=== PATIENT | male | born 1960 | race Caucasian/White ===

== ENCOUNTER 2018-07-02 13:02 | Observation (INO) ==
[2018-07-02] MEDS ORDERED: ASPIRIN PO ONE (13:47)
[2018-07-02] MEDS ORDERED: NITROGLYCERIN SL PRN (13:47)
--- NOTE | 2018-07-02 14:02 | EKG Report ---
Test Performed on : 07/02/2018 1:10:30 PM Test Reason : CP Blood Pressure : / mmHG Vent. Rate : 075 BPM Atrial Rate : 075 BPM P-R Int : 124 ms QRS Dur : 092 ms QT Int : 364 ms P-R-T Axes : 061 079 072 degrees QTc Int : 406 ms Normal sinus rhythm. Normal ECG No previous ECGs available Unconfirmed Result
[2018-07-02 14:14] LABS: BASO# 0.04 X1000 (0.0-0.2); BASO% 0.7 % (0.0-0.8); EOS% 1.8 % (0.0-10.0); HEMATOCRIT 40.7 % (42.0-52.0); HEMOGLOBIN 13.4 g/dL (14.0-18.0); LYMPH% 31.4 % (20.5-51.1); MCH 27.9 PG (27-31); MCHC 32.9 g/dL (33-37); MCV 84.6 FL (81-99); MONO# 0.45 X1000 (0.11-0.59); MONO% 8.3 % (1.7-9.3); NEUT# 3.12 X1000 (1.4-6.5); NEUT% 57.8 % (42.2-75.2); PLT 252 X1000 (130-400); RBC 4.81 XMIL (4.7-6.1); RDW 13.5 % (11.5-14.5); WBC 5.41 X1000 (4.8-10.8)
[2018-07-02 14:17] LABS: INR 0.99; PROTIME 13.9 Seconds (11.0-16.0)
[2018-07-02 14:18] LABS: PTT 31.8 Seconds (22.3-41.8)
[2018-07-02 14:20] LABS: AGAP 11; ALB/GLOB RATIO 1.6; ALBUMIN 4.3 g/dL (3.5-5.0); ALKALINE PHOSPHATASE 80 U/L (32-122); BUN 9 mg/dL (8-22); CALCIUM 10.1 mg/dL (8.8-10.2); CHLORIDE 103 mmol/L (98-107); COSMO 279; CREATININE 0.8 mg/dL (0.7-1.2); ESTIMATED GFR > 60; GLUCOSE 122 mg/dL (70-104); GOT 19 U/L (10-34); GPT 19 U/L (10-44); POTASSIUM 4.2 mmol/L (3.5-5.1); SODIUM 140 mmol/L (136-145); TCO2 26 mmol/L (25-35)
--- NOTE | 2018-07-02 14:24 | Diag Imaging Result Doc PS360 ---
EXAM: CHEST-2 VIEWS 07/02/2018 HISTORY: cp TECHNIQUE: PA and lateral chest COMMENT: There is no evidence of acute cardiac or pulmonary disease. There are no previous studies available for comparison. IMPRESSION: No acute disease. Electronically signed by Emmanuel Dolan 07/02/2018 2:22 PM
[2018-07-02 14:25] LABS: CK PROFILE 251 U/L (24-204)
[2018-07-02 14:40] LABS: CK INDEX 1.4 (0.0-2.5)
--- NOTE | 2018-07-02 16:57 | Diag Imaging Result Doc PS360 ---
EXAM: CT ABD/PELVIS W/PO AND IV CON 07/02/2018 HISTORY: gallbladder disease TECHNIQUE: This exam was performed using automated exposure control, adjustment of mA or kV according to patient size, and/or use of iterative reconstruction technique. COMMENT: There are no previous studies available for comparison. The visualized portion of the chest is unremarkable. There are multiple cysts in the liver including a large multilobated cyst in the left hepatic lobe measuring in excess of 6.2 cm in transverse dimension. There are no gallstones. The aorta is not distended and the mesenteric and renal arteries are patent bilaterally. There are two renal arteries on both sides. There is no evidence of hydronephrosis or nephrolithiasis. The spleen adrenal glands and pancreas are within normal limits. There are no renal masses. There is stool throughout the colon. There is no evidence of bowel obstruction. Pelvis: The appendix is normal in appearance. There is some diverticulosis in the sigmoid colon without evidence of diverticulitis. The urinary bladder is not distended. There is no evidence of free fluid. The regional skeleton appears to be intact. IMPRESSION: Congenital hepatic cysts. No evidence of cholelithiasis or cholecystitis. Mild constipation. Electronically signed by Emmanuel Dolan 07/02/2018 4:55 PM
--- NOTE | 2018-07-02 17:31 | PROVIDER DOCUMENTATION ---
This chart was entered by Patsy Watson Scribe, acting as scribe for Miladys Linares MD. HPI-Chest Pain - General Chief Complaint: Chest Pain Stated Complaint: CHEST PAIN Time Seen by Provider: 07/02/18 13:22 Source: patient - History of Present Illness-CP Nature of Presenting Problem: 58 y/o male presents to ED with intermittent, sharp/stabbing R sided chest pain radiating to back and shoulder and numbness/swelling of R arm onset 1 hour prior to arrival. EMS reports he had aspirin en roite to ED, which improved his symptoms. Pt states he no longer has the pain. Pt reports he has family hx [place] and cardiac arrest. Pt denies any URI symptoms. Pt is alert and oriented. Location: reports: other (R sided) Chest Pain Radiation: reports: shoulders, back Quality of Pain: reports: sharp, stabbing Severity in ED: moderate Onset/Duration: 1 hour ago Timing: gone now Context/Activities at Onset: reports: light activity Modifying Factors: improves with: other medication (aspirin) Associated Symptoms: reports: back pain Nitro Today/Relief: 0.4 mg x 3, provided by ED Aspirin Treatment Today: 325 mg x 1, provided by EMS, provided by ED Prior Chest Pain/Cardiac Workup: reports: no prior chest pain, no prior cardiac workup Similar Symptoms Previously?: No Recently Seen Here or By Another Healthcare Provider: No Review of Systems - Adult - REVIEW OF SYSTEMS - ADULT Constitutional: denies: chills, fever Eyes: reports: no symptoms reported Ears, Nose, Mouth & Throat: reports: no symptoms reported Cardiovascular: reports: chest pain. denies: palpitations Respiratory: denies: cough, shortness of breath Gastrointestinal: denies: abdominal pain, diarrhea, nausea, vomiting Genitourinary: reports: no symptoms reported Musculoskeletal: reports: back pain, joint pain (shoulder), other (R arm swelling) Integumentary: reports: no symptoms reported Neurological: denies: dizziness/vertigo, seizure Psychiatric: reports: no symptoms reported Endocrine: reports: no symptoms reported Hematologic/Lymphatic: reports: no symptoms reported Allergic/Immunologic: reports: no symptoms reported All Other Systems: Reviewed and Negative Past History - Adult - PAST MEDICAL HISTORY-ADULT Review of Records: reports: Old Records Reviewed, Nursing Assessment Review, Medications Reviewed Major Childhood Illnesses: reports: denies history Cardiovascular: reports: HTN, hyperlipidemia - PRIOR SURGERIES/PROCEDURES Surgical/Procedure History: reports: back/neck - IMMUNIZATION STATUS Childhood Immunizations: See Nurse Assessment Flu Vaccine: See Nurse Assessment - FAMILY HISTORY Family History: sudden , other ([place]/cardiac arrest) - SOCIAL HISTORY Smoking: less than 1 pack/day Provider spent 3-5 mins advising pt. on dangers of tobacco.: Discussed manners to quit use, and f/u contacts for add'l counseling. Substance Use: none/never Alcohol Use Frequency: 3-4 times a week Living Situation: family Physical Exam-General - PHYSICAL EXAM-ADULT Initial Vital Signs Reviewed: Yes - CONSTITUTIONAL General Appearance: appears well, alert, no apparent distress - EYES Eyes: PERRL/EOMI, pink conjunctivae - HEAD, EARS, NOSE, MOUTH & THROAT HENMT: normocephalic/atraumatic, moist mucous membranes, normal ENT inspection - NECK Neck: non-tender, full range of motion - RESPIRATORY Respiratory: chest non-tender, lungs clear, normal breath sounds - CARDIOVASCULAR Cardiovascular: normal peripheral pulses, regular rate, rhythm - GASTROINTESTINAL (ABDOMEN) Abdominal Exam: normal bowel sounds, non tender, soft - MUSCULOSKELETAL Back Exam: normal inspection, no CVA tenderness Extremity: normal range of motion, non-tender, normal gait - SKIN Integumentary: normal color, warm/dry - NEUROLOGIC Neurologic: grossly normal - PSYCHIATRIC Psych/Mental Status: normal mood/affect, normal thought content, normal thought process - HEART Score HEART Score: History: Slightly Suspicious HEART Score: Age: 45-65 Years HEART Score: Risk Factors for Atherosclerotic Disease: > or = 3 Risk Factors or History of Atherosclerotic Disease HEART Score: Troponin: < or = Normal Limit Progress - PLAN OF CARE/RESULTS Progress/Plan/Lab Results: Vital Signs - 8 hr 07/02/18 13:28 Temperature 98.6 F Pulse Rate 76 Respiratory Rate 15 Blood Pressure 111/72 O2 Sat by Pulse Oximetry 98 Laboratory Results - last 24 hr 07/02/18 07/02/18 07/02/18 13:12 13:12 13:12 WBC 5.41 RBC 4.81 Hgb 13.4 L Hct 40.7 L MCV 84.6 MCH 27.9 MCHC 32.9 L RDW Std Deviation 13.5 Plt Count 252 MPV 11.0 H Immature Gran % (Auto) 0.0 Neut % (Auto) 57.8 Lymph % (Auto) 31.4 Sherman % (Auto) 8.3 Eos % (Auto) 1.8 Baso % (Auto) 0.7 Immature Gran # (Auto) 0.00 Neut # (Auto) 3.12 Lymph # (Auto) 1.70 Sherman # (Auto) 0.45 Eos # (Auto) 0.10 Baso # (Auto) 0.04 PT INR PTT (Actin FS) Sodium 140 Potassium 4.2 Chloride 103 Carbon Dioxide 26 Anion Gap 11 BUN 9 Creatinine 0.8 Estimated GFR/1.73 m2 > 60 BUN/Creatinine Ratio 11 Glucose 122 H Calculated Osmolality 279 Calcium 10.1 Total Bilirubin 0.20 AST 19 ALT 19 Alkaline Phosphatase 80 Creatine Kinase 251 H Creatine Kinase Index 1.4 CK-MB (CK-2) 3.50 Troponin T Kid-V-Hsngbrzppty Pept 23 Total Protein 7.0 Albumin 4.3 Globulin 2.7 Albumin/Globulin Ratio 1.6 07/02/18 07/02/18 07/02/18 13:12 13:12 17:00 WBC RBC Hgb Hct MCV MCH MCHC RDW Std Deviation Plt Count MPV Immature Gran % (Auto) Neut % (Auto) Lymph % (Auto) Sherman % (Auto) Eos % (Auto) Baso % (Auto) Immature Gran # (Auto) Neut # (Auto) Lymph # (Auto) Sherman # (Auto) Eos # (Auto) Baso # (Auto) PT 13.9 INR 0.99 PTT (Actin FS) 31.8 Sodium Potassium Chloride Carbon Dioxide Anion Gap BUN Creatinine Estimated GFR/1.73 m2 BUN/Creatinine Ratio Glucose Calculated Osmolality Calcium Total Bilirubin AST ALT Alkaline Phosphatase Creatine Kinase Creatine Kinase Index CK-MB (CK-2) Troponin T < 0.010 < 0.010 Hsm-D-Mhhkcvslvaw Pept Total Protein Albumin Globulin Albumin/Globulin Ratio Orders Category Date Time Status Cardiac Monitoring DIRECTED Care 07/02/18 13:48 Active Oxygen Therapy- ED Nursing DIRECTED Care 07/02/18 13:48 Active Saline Loc NOW Care 07/02/18 13:48 Active Abdomen [CT ABD/PELVIS W/PO AND IV CON] [CT] Stat Exams 07/02/18 13:49 Completed CHEST-2 VIEWS [RAD] Stat Exams 07/02/18 13:48 Completed CBC WITH ELECTRONIC DIFF [HEME] Stat Lab 07/02/18 13:12 Completed CK PROFILE [SP CHEM] Stat Lab 07/02/18 13:12 Completed CK PROFILE [SP CHEM] Stat Lab 07/02/18 17:00 Received COMPREHENSIVE METABOLIC PANEL [CHEM] Stat Lab 07/02/18 13:12 Completed PRO B-NATRIURETIC PEPTIDE Stat Lab 07/02/18 13:12 Completed PROTIME WITH INR [COAG] Stat Lab 07/02/18 13:12 Completed PTT [COAG] Stat Lab 07/02/18 13:12 Completed TROPONIN T Stat Lab 07/02/18 13:12 Completed TROPONIN T Stat Lab 07/02/18 17:00 Completed Aspirin Med 07/02/18 13:47 Discontinued 325 mg PO NOW ONE Nitroglycerin Sl [Nitroglycerin] Med 07/02/18 13:47 Active 0.4 mg SL Q5M PRN PRN CP/SOB/Palp >45 yrs of Age Stat Oth 07/02/18 13:47 Ordered EKG [EKG] Stat Ther 07/02/18 13:48 Draft EKG [EKG] Stat Ther 07/02/18 16:28 Ordered Result Diagrams: 07/02/18 13:12 07/02/18 13:12 - XRAY 1 XRAY Study: Chest Impression: Normal (COMMENT: There is no evidence of acute cardiac or pulmonary disease. There are no previous studies available for comparison. IMPRESSION: No acute disease. Electronically signed by Emmanuel Dolan 07/02/2018 2:22 PM) - CT/MRI 1 CT Study: Abdomen, Pelvis Impression: Abnormal (COMMENT: There are no previous studies available for comparison. The visualized portion of the chest is unremarkable. There are multiple cysts in the liver including a large multilobated cyst in the left hepatic lobe measuring in excess of 6.2 cm in transverse dimension. There are no gallstones. The aorta is not distended and the mesenteric and renal arteries are patent bilaterally. There are two renal arteries on both sides. There is no evidence of hydronephrosis or nephrolithiasis. The spleen adrenal glands and pancreas are within normal limits. There are no renal masses. There is stool throughout the colon. There is no evidence of bowel obstruction. Pelvis: The appendix is normal in appearance. There is some diverticulosis in the sigmoid colon without evidence of diverticulitis. The urinary bladder is not distended. There is no evidence of free fluid. The regional skeleton appears to be intact. IMPRESSION: Congenital hepatic cysts. No evidence of cholelithiasis or cholecystitis. Mild constipation. Electronically signed by Emmanuel Dolan 07/02/2018 4:55 PM) - CONSULTS/PCP/HOSPITALIST Notification #1 *Consult/PCP/Hospitalist*: MÓNICA Turner for Dr. Hicks Time Discussed: 17:23 Reason/Comments: Chest pain; family hx of sudden , [place], cardiac arrest Consult Disposition: Admit Departure - Departure Date of Disposition Decision: 07/02/18 Time of Disposition Decision: 17:23 DIAGNOSIS: ACS (acute coronary syndrome) Disposition: ADMITTED INPATIENT 09 Certified Medical Emergency: Emergent Condition: Stable Referrals and Follow-Ups: Barrington Palacios [Primary Care Provider] - Discharge Education: Steps to Quit Smoking, [id number] - Critical Care Note This patient required my direct & personal management of CC.: No Attestation - Physician/ ELIZABETH Attestation Patient care was provided by Advanced Practice Provider:: No The physician spent face to face time with patient:: Yes Advanced Practice Provider documentation review:: Supervising physician onsite and consulted in the evaluation and care of this patient. The physician did have a face to face encounter with the patient. This chart was documented by the indicated scribe, (Patsy Watson Scribe) and accurately reflects the services I performed and decisions made by me, Miladys Linares MD, as attested by the provider's signature.
[2018-07-02 18:27] LABS: CK INDEX 1.4 (0.0-2.5); CK-MB 2.92 ng/mL (0.0-5.0)
--- NOTE | 2018-07-02 19:57 | HISTORY AND PHYSICAL ---
PRIMARY CARE PROVIDER: Dr. Philip Ferris in the [facility] system in [place]. PRESENTING COMPLAINT: Chest pain. HISTORY OF PRESENTING COMPLAINT: Mr. Flores is a 58-year-old male with a history of hypertension and dyslipidemia, also tobacco abuse. He has been pretty active and follows up very religiously with his primary care doctor. Has been in his regular state of health until early this morning. He was working when he had this retrosternal chest pain of acute onset, went to about 8/10 which was associated with some numbness, especially on the right arm. He also said the pain went into his back and to both shoulders. He denied any nauseation or any dizziness. He what to sit down and the pain gradually subsided. He said the pain lasted for about 5 minutes, but then a couple minutes after he had another episode of similar description retrosternal, extremely high intensity radiating to the back and making the right upper extremity slightly numb. In any case, he said the EMS station is just pretty close to where he works so they were in within no time he was given nitroglycerin and aspirin and that seems to have brought down the pain to about 4, about 3-4. By the time he came to the emergency room he was pain free. PAST MEDICAL HISTORY: 1. Hypertension. 2. Dyslipidemia. 3. GERD. PAST SURGICAL HISTORY: Lower back laminectomy. FAMILY HISTORY: 1. Positive for mother with cardiomyopathy. 2. Father has hypertension. 3. Uncles 2 of acute myocardial infarction from the father's side and her maternal grandfather also of acute myocardial infarction. SOCIAL HISTORY: Mr. Flores is , has kids. He denies alcohol use, but he has a 20 pack year history of smoking. He denies any street drug use. HOME MEDICATIONS: Include: 1. Lisinopril 2.5 mg daily. 2. Pravastatin 40 mg daily. 3. Nexium 40 mg every now and then for GERD. REVIEW OF SYSTEMS: A 14-point review of system conducted with Mr. Flores is unremarkable except what we have in the HPI. Specifically, Mr. Gaston denies any shortness of breath or cough. No fever, no vomiting, no diarrhea, no abdominal pain. OBJECTIVE: Vital Signs: Blood pressure is 111/72, pulse is 75, respiration is 15, temperature 98.6. Mr. Flores is saturating 98% on room air. General: Mr. Flores is a 58-year-old male. He was in bed. He did not seem to be in any cardiopulmonary distress. HEENT: Mucosa is pink and moist. Anicteric. Acyanotic. Neck: Supple. There was no JVD. Trachea is midline. There is no thyromegaly. Head is normocephalic and atraumatic. Respiratory: There is good air entry bilaterally. No crepitations. No rhonchi. No accessory muscle use. Cardiovascular: Regular rate and rhythm. No murmurs, no rubs, no gallops. Gastrointestinal: Abdomen is soft, is nontender. Bowel sounds are present. No hepatosplenomegaly and no scar tissue on the abdominal wall. Genitourinary: Unremarkable. Extremities: No pedal edema. Distal pulses are present. Central Nervous System: Patient is awake, alert, oriented. His cortical functions are normal. The patient has 5/5 power in all extremities. Sensation is intact except for the right lateral aspect of the lower extremity that has reduced sensation. According to the patient this is chronic. I did not explore gait. Psychiatric: The patient is very cooperative. Has good understanding and judgment. LABORATORY DATA: WBC is 5.41, hemoglobin is 12.4, platelet count of 252,000. Coagulation study is normal. Chemistry is completely normal. Troponin has been done 2 times and it is unremarkable. DIAGNOSTIC STUDIES: 1. A chest x-ray showed no acute disease. 2. A CT scan of the abdomen and pelvis which was done in the ER showed congenital hepatic cyst. No evidence of cholelithiasis or cholecystitis. There was mild constipation. 3. EKG shows normal sinus rhythm, normal axis, no ST-segment abnormality or T- wave abnormality. ASSESSMENT: Mr. Flores who is hypertensive and has dyslipidemia with history of tobacco use presented with an acute onset of retrosternal chest pain which is concerning for unstable angina. 1. Acute onset of chest pain concerning for unstable angina. The patient is going to be admitted to the medical floor under telemonitoring. He currently will be on aspirin and statin and we will do a cardiac workup to rule out any significant coronary artery disease. We will do an echocardiogram, a stress test tomorrow. We will also get Cardiology to see Mr. Flores. 2. Dyslipidemia. We will follow up with lipid profile in the morning and titrate medication accordingly. 3. Hypertension is currently controlled. We will continue with his low-dose lisinopril. 4. Tobacco abuse. Patient has been counseled about cessation. 5. 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 6. History of GERD. We will continue with his home omeprazole. So, main concern in Mr. Flores is possibility of significant coronary artery disease. His presentation is concerning for unstable angina. He is going to be admitted for cardiac risk stratification. I have explained the plan in detail with Mr. Flores and he voiced understanding. cc: Ulises Hicks MD [facility]
[2018-07-03] MEDS ORDERED: PRILOSEC PO SCH (07:00)
--- NOTE | 2018-07-03 07:30 | EKG Report ---
Test Performed on : 07/03/2018 07:18:25 AM Test Reason : chest pain Blood Pressure : / mmHG Vent. Rate : 070 BPM Atrial Rate : 070 BPM P-R Int : 134 ms QRS Dur : 092 ms QT Int : 406 ms P-R-T Axes : 046 072 062 degrees QTc Int : 438 ms Normal sinus rhythm. Normal ECG When compared with ECG of 02-JUL-2018 20:09, (Unconfirmed) No significant change was found Confirmed by Dwayne CRAWFORD, Johnnie Santiago ([id number]) on 07/04/2018 10:53:55 AM
--- NOTE | 2018-07-03 07:39 | EKG Report ---
Test Performed on : 07/02/2018 8:09:39 PM Test Reason : cp Blood Pressure : / mmHG Vent. Rate : 075 BPM Atrial Rate : 075 BPM P-R Int : 142 ms QRS Dur : 080 ms QT Int : 388 ms P-R-T Axes : 050 073 054 degrees QTc Int : 433 ms Normal sinus rhythm. with sinus arrhythmia. Normal ECG When compared with ECG of 02-JUL-2018 13:10, (Unconfirmed) No significant change was found Confirmed by Dwayne CRAWFORD, Johnnie Santiago ([id number]) on 07/04/2018 10:53:17 AM
[2018-07-03 08:02] LABS: AGAP 7; BUN 7 mg/dL (8-22); CALCIUM 9.2 mg/dL (8.8-10.2); CHLORIDE 107 mmol/L (98-107); COSMO 279; CREATININE 0.8 mg/dL (0.7-1.2); ESTIMATED GFR > 60; GLUCOSE 99 mg/dL (70-104); POTASSIUM 4.3 mmol/L (3.5-5.1); SODIUM 141 mmol/L (136-145); TCO2 27 mmol/L (25-35)
[2018-07-03] MEDS ORDERED: PRINIVIL PO SCH (09:00)
[2018-07-03] MEDS ORDERED: PRAVACHOL PO SCH (09:00)
[2018-07-03 09:41] LABS: HEMATOCRIT 41.9 % (42.0-52.0); HEMOGLOBIN 13.7 g/dL (14.0-18.0); MCH 28.4 PG (27-31); MCHC 32.7 g/dL (33-37); MCV 86.7 FL (81-99); RBC 4.83 XMIL (4.7-6.1); RDW 13.8 % (11.5-14.5); WBC 4.85 X1000 (4.8-10.8)
--- NOTE | 2018-07-03 11:36 | PROGRESS NOTE ---
DATE: 07/03/2018 SUBJECTIVE: This morning, Mr. Flores refers to be doing fairly okay. He said he had one episode of chest discomfort early on, but none now. OBJECTIVE: Vital Signs: Blood pressure is 127/78, pulse of 63, respirations are 18, temperature is 97.6 degrees. General Examination: Mr. Flores is a 58-year-old, gentleman. He is in bed. No distress. HEENT: Mucosa is pink and moist. Anicteric. Acyanotic. Neck: Supple. Chest: Clear to auscultation. No crepitations. No rhonchi. Cardiovascular: Regular rate and rhythm. Abdomen: Soft. Extremities: No pedal edema. Distal pulses are present. 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 There is no focal neurological deficit. Laboratory Data: Has also been reviewed. CBC is unremarkable. Chemistry is completely normal. Troponins have been done four times. They are all negative. A repeat EKG this morning shows a normal sinus rhythm with a normal axis. No ST-segment abnormality or any T-wave abnormality. Current Medications: Have also been reviewed. ASSESSMENT: 1. Acute onset chest pain, concerning for unstable angina. The patient is pending a stress test and other cardiac workup today. Cardiology has also been consulted. We will follow up with their recommendations. 2. Dyslipidemia. The patient is on pravastatin. 3. Tobacco abuse. The patient has been counseled. 4. History of gastroesophageal reflux disease. The patient continues to be on a proton pump inhibitor. PLAN: In general, I think Mr. Flores seems to be doing okay. We are pending cardiac workup for risk stratification purposes. Depending on the results, we might be able to discharge him today or continue with other studies. cc: Ulises Hicks MD
[2018-07-03 11:52] VITALS: BP 135/81
--- NOTE | 2018-07-03 13:32 | Diag Imaging Result Document ---
PROCEDURE NAME: MYOCARDIAL PERF SCAN, STR/REST - 07/02/2018 INDICATION: Chest pain. PROCEDURES PERFORMED: 1. Cash protocol stress. 2. One-day stress rest myocardial perfusion imaging. PROCEDURE IN DETAIL: Mr. Flores was brought to the nuclear laboratory and had a resting study with injection of 14.8 mCi of technetium-99m sestamibi with the usual imaging protocol utilized. He subsequently was brought back and had a Cash protocol stress. At peak stress, he was injected with 41.9 mCi of technetium-99m sestamibi with the usual imaging protocol utilized. FINDINGS: Cash protocol stress results: 1. Baseline EKG shows sinus rhythm. 2. Patient exercised for a total of 10 minutes and 1 second, achieving a peak heart rate of 160 which was 97% of age predicted max. He achieved 11.7 METS and early stage IV of the Cash protocol. Exercise capacity was 145% of age and sex predicted exercise capacity. 3. Appropriate blood pressure response to exercise. 4. Test was terminated due to fatigue. 5. No anginal complaints occurred during the course of study. 6. No ischemic related EKG changes or significant arrhythmias. Perfusion imaging results: 1. No evidence of abnormal extracardiac uptake. 2. TID ratio is 0.94. 3. Perfusion imaging does not clearly demonstrate any evidence of ischemic defects. There is a small amount of inferior soft tissue attenuation evident with intact wall motion in that area. This likely represents a low risk study. 4. Normal ejection fraction of 70%. The end-diastolic volume is 128, end-systolic volume of 38. Normal wall motion. cc: MD Kiana Escalante CRNP
--- NOTE | 2018-07-03 14:50 | CONSULTATION ---
DATE OF CONSULTATION: 07/03/2018 IMPRESSION: 1. Recent chest discomfort with mixed features for myocardial ischemia. ECG normal. Serial troponin's normal. 2. Hypertension. 3. Hyperlipidemia. 4. Chronic cigarette use. RECOMMENDATIONS: 1. Agree with plans for stress myocardial perfusion imaging. 2. Smoking cessation strongly advised. HISTORY: This 58-year-old white male with past history of hypertension, hyperlipidemia, and chronic cigarette use was admitted to the emergency room with chest pain. He relates that yesterday while at work he started experiencing sharp substernal chest discomfort with some lesser dull component. Discomfort was abrupt in onset, and then would fade. Discomfort continued to recur. He had some mild numbness in his right hand with this. He also had some radiation to his right shoulder and to his back. There were no other associated symptoms. Discomfort persistently recurred, and EMS was summoned. He was given aspirin and sublingual nitroglycerin. Discomfort seemed to fade but did not resolve. By the time he arrived to the emergency room, the discomfort was very mild. Discomfort eventually resolved after a total duration of 45 minutes. He has not had any further discomfort. His discomfort was neither pleuritic nor positional. There has been no associated cough. He had just eaten perhaps 30 minutes prior to onset of discomfort. Discomfort did not seem to be aggravated by movement of the torso or lifting. PAST MEDICAL HISTORY: 1. Hypertension. 2. Hyperlipidemia. 3. Gastroesophageal reflux. PAST SURGICAL HISTORY: Lumbar laminectomy. ALLERGIES: He has no known drug allergies. MEDICATIONS PRIOR TO ADMISSION: As listed. SOCIAL HISTORY: He is . He smokes half-pack of cigarettes per day, and has done so for at least 20 years. He does not use alcohol. FAMILY HISTORY: Negative for premature coronary disease. REVIEW OF SYSTEMS: Pulmonary: Negative. Gastrointestinal: Negative. Constitutional: Negative. Remainder of the review of systems negative/noncontributory with 14 total systems reviewed. PHYSICAL EXAMINATION: General: This is a pleasant middle-aged white male in no distress. Vital signs: Blood pressure 127/78, heart rate 66, and oxygen saturation 100% on room air. HEENT: Extraocular muscles appear intact. Mucous membranes moist. Neck: Supple without jugular venous distention. There are no carotid bruits. Chest: Clear to auscultation bilaterally. Cardiac: Exam reveals a regular rate and rhythm without appreciable murmur, rub or gallop. Abdomen: Soft. Bowel sounds normal. Extremities: Without edema. Neurologic: Reveals him to be alert and fully oriented. Speech is fluent. Moves all 4 extremities equally well. Skin: Warm and dry. Psychiatric: Reveals mood to be appropriate. A 12 lead EKG demonstrates normal sinus rhythm and was within normal limits. LABORATORY DATA: Includes white blood cell count of 4.85, hematocrit 41.9, hemoglobin 13.7, and platelet count 230,000. Sodium 141, potassium 4.3, chloride 107, carbon dioxide 27, BUN 7, creatinine 0.8. Initial troponin less than 0.01. Followup troponin less than 0.01. Initial CPK 166. Followup CPK 135. cc: Barrington Grace MD
--- NOTE | 2018-07-04 13:24 | DISCHARGE SUMMARY ---
ADMISSION DATE: 07/02/2018 DISCHARGE DATE: 07/03/2018 DISPOSITION: Home. FOLLOWUP: 1. Dr. Brarington Palacios. 2. Dr. Ryder. CONSULTATION DURING THIS ADMISSION: Cardiology was consulted, patient was seen by Dr. Santos. INVASIVE PROCEDURES DONE DURING THIS ADMISSION: None. IMAGING STUDIES OF SIGNIFICANCE: 1. A chest x-ray shows no acute disease. 2. 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 No evidence of cholelithiasis or cholecystitis. There was mild constipation. 3. A myocardial perfusion scan was normal. Ejection fraction of 70%. No clear evidence of ischemic defects. 4. Multiple EKGs were done which where unremarkable. No ST-segment or T-waves abnormality. ADMISSION DIAGNOSES: 1. Acute onset of chest discomfort. 2. Dyslipidemia. 3. Hypertension. 4. Tobacco abuse. DIAGNOSIS AT THE TIME OF DISCHARGE: 1. Acute onset of chest pain with negative cardiac workup. The patient is advised to follow up with GI to rule out any potential GI-related pathology including possible diffuse esophageal spasms. 2. Dyslipidemia. 3. Hypertension. 4. Tobacco abuse. 5. 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 6. History of gastroesophageal reflux disease. DISCHARGE MEDICATIONS: 1. Lisinopril 2.5 mg p.o. daily. 2. Pravastatin 20 mg daily. 3. Nexium 40 mg daily. 4. Nitroglycerin sublingual p.r.n. if needed. PRESENTING COMPLAINT: Chest pain. HISTORY OF PRESENTING COMPLAINT: Mr. Flores is a 58-year-old male with a history of hypertension, dyslipidemic, and GERD. Family history positive for cardiomyopathy and myocardial infarctions. He presented to the emergency department because of an acute onset of chest pain which resolved some with nitroglycerin administration. Patient came to the emergency department via EMS, was evaluated and admitted for cardiac risk stratification. HOSPITAL COURSE: Mr. Flores was admitted to the medical floor under telemetry monitoring. Troponin and EKGs were serial repeated when unremarkable. The patient's chest pain, however, subsided. Cardiology saw him and a stress test was done which was also unremarkable. This morning, Mr. Flores refers to be doing a whole lot better. He is completely asymptomatic. He has a history of GERD and we suspect that now that the cardiac evaluation is negative, he probably has a GI-related pathology including the possibility of having diffuse esophageal spasms. The patient is on PPI. We would advise that he follows up with GI for other GI related workup. The was at the bedside at the time of the encounter, says she sees Dr. Ryder and she wants him to also follow up with Dr. Ryder, so will recommend that he follows up with Dr. Ryder who is a GI specialist. At the time of the discharge, his vitals are completely stable. He is also completely asymptomatic. He has been tolerating his diet. Mr. Flores is therefore stable for discharge. All the discharge instructions have been discussed with him. We have specifically stressed the need for tobacco cessation. We have also notified him about a congenital cyst in his liver and that needs to follow-up. Mr. Flores and the all voiced understanding of the discharge recommendations. TIME SPENT: For discharge is 33 minutes. cc: Ulises Hicks MD
== END 2018-07-03 16:15 | disposition home or self-care (01) ==
LOC: SUPCPDRO → ED 13:02 → 3N 13:02
PROVIDERS: ATTEND Internal Medicine
CPT/HCPCS: 71020; 71046; 74177; 78452; 80048; 80053; 82550; 82553; 83880; 84484; 85025; 85027; 85610; 85730; 93005; 93010; 93017; 99285; A9270; A9500; Q9967